=== PATIENT | female | born 1930 | race Caucasian/White ===

== ENCOUNTER 2017-05-05 15:50 | Emergency (ER) | payer MEDICARE, BC ==
[~2017-05-05] VITALS: Ht 149.9 cm; Wt 49.9 kg
[~2017-05-05 15:50] MED LIST: ACETAMINOPHEN650 M3 PO; ASPIR 8181 MG PO; CARAFATE 1 GM TA1 G1 PO; CITRACAL + D31 EACH PO; CLOPIDOGREL75 MG PO; HYDROCHLOROTHIA25 M2 PO; LIPITOR 20 MG T20 M1 PO; LOPRESSOR25 PO; MIRALAX17 GM PO; PRINIVIL20 MG PO; PROTONIX40 M1 PO; RANEXA500 MG PO; SPECTRAVITE SE1 EACH PO; TRAMADOL 50 MG50 MG PO; VITAMIN B-12500 MC5 SL; ZESTORETIC 20-1 EAC3 PO; ZESTORETIC 20-1 EACH PO
[2017-05-05 17:22] VITALS: BP 197/65
== END 2017-05-05 17:23 | disposition home or self-care (01) ==
LOC: M.ERS 15:50
DX: S00.03XA Contusion of scalp, initial encounter (principal); S01.01XA Laceration without foreign body of scalp, initial encounter; I50.9 Heart failure, unspecified; J44.9 Chronic obstructive pulmonary disease, unspecified; Z86.73 Personal history of transient ischemic attack (TIA), and cerebral infarction without residual deficits; Z95.0 Presence of cardiac pacemaker; Z90.710 Acquired absence of both cervix and uterus; Z98.890 Other specified postprocedural states

== ENCOUNTER → 2017-07-24 | Outpatient (CLI) | payer MEDICARE, BC ==
[~2017-07-24] MED LIST changes: +ADVAIR 250-501 EACH INH; +ARICEPT 5 MG TAB5 MG PO; +B12INJ IM; +CEFDINIR300 MG PO; +CLONIDINE HCL0.1 M1 PO; +NORVASC5 MG PO; +TESSALON PERLE100 MG PO; +XALATAN2.5 ML OPHTHALMIC
--- NOTE | 2017-07-24 11:47 | 2DMMODE ---
[place] [address] 2 D/M-MODE ECHOCARDIOGRAM Name: DAVIDJJ M Room: [facility]#: [id number] Admission: 07/24/17 Attend Phys: Landen Covington, Discharge: Date of : [birth year] Date of Service: 07/24/17 1147 Report #: [id number] THIS REPORT FOR: //name// APPROVED REPORT Study performed: 07/24/2017 09:14:47 EXAM: Comprehensive 2D, Doppler, and color-flow Echocardiogram Patient Location: Out-Patient BSA: 1.44 HR: 74 bpm BP: 152/72 mmHg Other Information Study Quality: Good Indications Congestive Heart Failure 2D Dimensions IVSd: 10.38 (7-11mm) LVOT Diam: 19.94 (18-24mm) LVDd: 39.36 mm PWd: 9.54 (7-11mm) Ascending Ao: 29.62 (22-36mm) LVDs: 20.28 (25-40mm) Aortic Root: 27.19 mm Volumes Left Atrial Volume (Systole) LA ESV Index: 14.90 mL/m2 Aortic Valve AoV Peak Rubio.: 1.05 m/s AO Peak Gr.: 4.42 mmHg LVOT Max P.26 mmHg AO Mean Gr.: 2.46 mmHg LVOT Mean P.14 mmHg LVOT Max V: 1.03 m/s AO V2 VTI: 21.71 cm LVOT Mean V: 0.67 m/s PUNEET (VTI): 3.49 cm2 LVOT V1 VTI: 24.25 cm AI Colquitt: 4.55 m/s2 AI PHT: 268.06 ms Mitral Valve MV Decel. Time: 126.29 ms MV PHT: 36.62 ms MVA (PHT): 6.01 cm2 [place] [address] 2 D/M-MODE ECHOCARDIOGRAM Name: JJ HERNANDEZ Room: [facility]#: [id number] Admission: 07/24/17 Attend Phys: Landen Covington, Discharge: Date of : [birth year]02[birth year] Date of Service: 07/24/17 1147 Report #: [id number] TDI Medial E' Rubio.: 0.05 m/s Lateral E' Rubio.: 0.05 m/s Pulmonary Valve PV Peak Rubio.: 0.75 m/s PV Peak Gr.: 2.28 mmHg Tricuspid Valve TR Peak Gr.: 23.66 mmHg RVSP: 28.66 mmHg Left Ventricle The left ventricle is normal size. There is normal LV segmental wall motion. There is normal left ventricular wall thickness. Left ventricular systolic function is normal. The left ventricular ejection fraction is within the normal range. LVEF is 55-60%. The left ventricular diastolic function is normal. Right Ventricle The right ventricle is normal size. The right ventricular systolic function is normal. Atria The left atrium size is normal. Pacemaker lead is present in the right atrium. Aortic Valve The aortic valve is normal in structure. Mild aortic regurgitation. There is no aortic valvular stenosis. Mitral Valve There is mitral annular calcification. Mild mitral regurgitation. No evidence of mitral valve stenosis. Tricuspid Valve The tricuspid valve is normal in structure. Mild tricuspid regurgitation. The RVSP is _35_ mmHg. Pulmonic Valve The pulmonary valve is normal in structure. Mild pulmonic regurgitation. Great Vessels The aortic root is normal in size. IVC is normal in size and collapses with >50% [place] [address] 2 D/M-MODE ECHOCARDIOGRAM Name: HUGOMERVATRODRIGOJJ M Room: [facility]#: [id number] Admission: 07/24/17 Attend Phys: Landen Covington, Discharge: Date of : [birth year] Date of Service: 07/24/17 1147 Report #: [id number] Pericardium There is no pericardial effusion. <Conclusion> LVEF is 55-60%. Mild aortic regurgitation. Mild mitral regurgitation. Mild tricuspid regurgitation. The RVSP is _35_ mmHg. <ELECTRONICALLY SIGNED> By: Zelalem Navarro MD, FACC 07/24/17 1147 1147 1147 Zelalem Navarro MD, FAC /INF
== END ==
LOC: M.CRD 09:00
DX: I08.3 Combined rheumatic disorders of mitral, aortic and tricuspid valves (principal); I50.9 Heart failure, unspecified; I25.10 Atherosclerotic heart disease of native coronary artery without angina pectoris

== ENCOUNTER → 2017-10-29 | Outpatient (CLI) | payer MEDICARE, BC ==
[2017-10-29 08:41] LABS: CHOLESTEROL 201 mg/dL (<200); HDL CHOLESTEROL 58 mg/dL (>40); LDL CHOLESTEROL 106 mg/dL (<100); TC:HDL 3.5 Ratio (Not establshd); TRIGLYCERIDE 187 mg/dL (<150); VLDL 37 mg/dL (<40)
[2017-10-29 08:42] LABS: SERUM ASSESSMENT Clear
== END ==
LOC: M.LAB 08:10
PROVIDERS: Internal Medicine Cardiovascular Disease
DX: E78.5 Hyperlipidemia, unspecified (principal); I25.10 Atherosclerotic heart disease of native coronary artery without angina pectoris

== ENCOUNTER 2017-11-02 08:40 | Inpatient (IN) | payer MEDICARE, BC ==
[~2017-11-02] VITALS: Ht 152.4 cm; Wt 54.0 kg
[~2017-11-02 08:40] MED LIST changes: -ADVAIR 250-501 EACH INH; -ARICEPT 5 MG TAB5 MG PO; -B12INJ IM; -CEFDINIR300 MG PO; -CLONIDINE HCL0.1 M1 PO; -NORVASC5 MG PO; -TESSALON PERLE100 MG PO; -XALATAN2.5 ML OPHTHALMIC
[2017-11-02 08:41] VITALS: BP 154/65
[2017-11-02 09:26] LABS: APTT 28.1 Seconds (25.0-31.3); INR 1.1; PROTIME 10.5 Seconds (9.20-11.50)
[2017-11-02 09:26] LABS: URINE BILIRUBIN NEGATIVE (Negative); URINE BLOOD TRACE (Negative); URINE CLARITY CLEAR; URINE COLOR YELLOW; URINE GLUCOSE-RANDOM NEGATIVE (Negative); URINE KETONES TRACE (Negative); URINE LEUKOCYTES-REFLEX 1+ (Negative); URINE NITRITE-REFLEX NEGATIVE (Negative); URINE PROTEIN 2+ (Negative); URINE UROBILINOGEN 0.2 E.U./dl (0.2-1.0)
[2017-11-02 09:44] LABS: CASTS None Seen /LPF (None Seen); CRYSTALS None Seen /LPF (None Seen); SQUAMOUS 0-3 Few /LPF (0-3)
[2017-11-02 09:45] LABS: BACTERIA-REFLEX >30 Many /HPF (None Seen)
[2017-11-02 09:46] LABS: URINE RBC 0-2 Rare /HPF (0-2)
[2017-11-02 10:46] LABS: HEMATOCRIT 40.3 % (37.0-47.0); HEMOGLOBIN 13.5 gm/dL (12.0-15.0); MCH 30.1 pg (26.0-34.0); MCHC 33.6 g/dL (28.0-37.0); MCV 89.6 fL (80.0-100.0); MPV 10.1 fl. (7.2-11.1); NUCLEATED RBCS 0 /100WBC; PLATELET COUNT* 191 thou/uL (150-400); RDW-CV 14.8 % (10.5-14.5); WBC 14.7 thou/uL (4.0-11.0)
[2017-11-02 10:51] LABS: CALCIUM 9.5 mg/dL (8.5-10.1); CREATININE 1.8 mg/dL (0.6-1.3); POTASSIUM 4.7 mmol/L (3.5-5.1)
[2017-11-02 11:11] LABS: ALBUMIN 3.5 g/dL (3.4-5.0); CK-MB MASS 5.1 ng/mL (<0.5-3.6); TOTAL BILIRUBIN 1.4 mg/dL (<0.1-1.0); TOTAL PROTEIN 7.4 g/dL (6.4-8.2); TROPONIN-I LEVEL 0.15 ng/mL (<0.06)
[2017-11-02 11:52] LABS: ABSOLUTE LYMPHOCYTES 2.1 thou/uL (0.8-5.3); ABSOLUTE MONOCYTES 0.4 thou/uL (0.0-1.2); ABSOLUTE NEUTROPHILS 12.2 thou/uL (1.6-8.1); PLATELET ESTIMATE ADEQUATE
[2017-11-02 12:49] VITALS: BP 92/37
[2017-11-02 13:00] VITALS: BP 120/57
[2017-11-02] MEDS ORDERED: XALATAN2.5 ML OPHTHALMIC (14:45)
[2017-11-02 15:45] VITALS: BP 173/75
[2017-11-02 19:50] VITALS: BP 164/43
[2017-11-03] VITALS: BP 155/56
[2017-11-03 04:00] VITALS: BP 101/62
[2017-11-03 08:20] VITALS: BP 154/55
[2017-11-03 12:00] VITALS: BP 151/54
--- NOTE | 2017-11-03 14:43 | EKG ---
[place] [address] ELECTROCARDIOGRAM REPORT Name: JJ HERNANDEZ Room: [address] IN .R.#: [id number] Admission: 11/02/17 Attend Phys: Isaiah Fonseca Discharge: Date of : [birth year] Report #: [id number] THIS REPORT FOR: //name// [facility] ED Test Date: 2017-11-02 Test Time: 08:51:29 Pat Name: JJ HERNANDEZ Department: Room: Gender: Business Sales Consultant: Patrick FRASER : 1930 Requested By: Leodan Stephens Order Number: [id number] MD: Landen Covington Measurements Intervals Caspian Rate: 104 P: KS: QRS: -61 QRSD: 136 T: -38 QT: 365 QTc: 481 Interpretive Statements Sinus tachycardia RBBB and LAFB Compared to ECG 02/11/2017 14:42:26 No significant changes noted Electronically Signed On 11-03-2017 14:42:58 CDT by Landen Covington [email or web address] <ELECTRONICALLY SIGNED> By: Landen Covington MD, [facility] 11/03/17 1442 [phone] Landen Covington MD, [facility] /EPI
[2017-11-03 16:00] VITALS: BP 119/59
[2017-11-03 18:06] LABS: ABSOLUTE BASOPHILS 0.1 thou/uL (0.0-0.2); ABSOLUTE EOSINOPHILS 0.4 thou/uL (0.0-0.7); ABSOLUTE MONOCYTES 0.8 thou/uL (0.0-1.2); ABSOLUTE NEUTROPHILS 7.3 thou/uL (1.6-8.1); BASOPHILS 0.8 %; EOSINOPHILS 3.4 %; HEMATOCRIT 34.9 % (37.0-47.0); HEMOGLOBIN 11.8 gm/dL (12.0-15.0); LYMPHOCYTES 19.2 %; MCH 30.8 pg (26.0-34.0); MCHC 33.9 g/dL (28.0-37.0); MCV 90.9 fL (80.0-100.0); MONOCYTES 7.3 %; MPV 9.7 fl. (7.2-11.1); NUCLEATED RBCS 0 /100WBC; PLATELET COUNT* 166 thou/uL (150-400); POLYS 69.3 %; RBC 3.84 mil/uL (4.20-5.00); RDW-CV 15.4 % (10.5-14.5); WBC 10.6 thou/uL (4.0-11.0)
[2017-11-03 18:14] LABS: CALCIUM 8.4 mg/dL (8.5-10.1); CREATININE 1.4 mg/dL (0.6-1.3)
[2017-11-03 19:50] VITALS: BP 177/50
[2017-11-04] VITALS (7 sets, daily range): BP systolic 139–221; BP diastolic 53–74
[2017-11-05] VITALS: BP 178/65
[2017-11-05 04:00] VITALS: BP 198/65
[2017-11-05 05:27] LABS: HEMATOCRIT 33.1 % (37.0-47.0); HEMOGLOBIN 11.2 gm/dL (12.0-15.0); MCHC 33.8 g/dL (28.0-37.0); MCV 91.7 fL (80.0-100.0); MPV 9.5 fl. (7.2-11.1); RBC 3.62 mil/uL (4.20-5.00); RDW-CV 15.1 % (10.5-14.5); WBC 10.9 thou/uL (4.0-11.0)
[2017-11-05 05:42] LABS: ALBUMIN 2.5 g/dL (3.4-5.0); CALCIUM 8.7 mg/dL (8.5-10.1); CREATININE 1.2 mg/dL (0.6-1.3); POTASSIUM 3.8 mmol/L (3.5-5.1); TOTAL BILIRUBIN 0.5 mg/dL (<0.1-1.0); TOTAL PROTEIN 5.9 g/dL (6.4-8.2)
[2017-11-05 05:44] VITALS: BP 141/42
[2017-11-05 08:10] VITALS: BP 173/58
[2017-11-05 12:36] VITALS: BP 149/49
[2017-11-05] MEDS ORDERED: NORVASC5 MG PO (14:06)
[2017-11-05] MEDS ORDERED: TESSALON PERLE100 MG PO (14:15)
[2017-11-05] MEDS ORDERED: CLONIDINE HCL0.1 M1 PO (14:19)
[2017-11-05] MEDS ORDERED: CEFDINIR300 MG PO (14:21)
[2017-11-05] MEDS ORDERED: ADVAIR 250-501 EACH INH (14:23)
[2017-11-05 14:28] VITALS: BP 149/49
== END 2017-11-05 15:59 | DRG 871 ==
LOC: M.ERS 08:40 → M.TBA-ER 10:59 → M.2W 10:59
PROVIDERS: Family Medicine; ADMIT Internal Medicine
DX: A41.9 Sepsis, unspecified organism (principal); N17.0 Acute kidney failure with tubular necrosis; G93.41 Metabolic encephalopathy; N39.0 Urinary tract infection, site not specified; E87.1 Hypo-osmolality and hyponatremia; J44.9 Chronic obstructive pulmonary disease, unspecified; K21.9 Gastro-esophageal reflux disease without esophagitis; I50.9 Heart failure, unspecified; Z86.73 Personal history of transient ischemic attack (TIA), and cerebral infarction without residual deficits; Z90.49 Acquired absence of other specified parts of digestive tract; Z90.710 Acquired absence of both cervix and uterus; Z95.0 Presence of cardiac pacemaker; Z79.82 Long term (current) use of aspirin; Z79.899 Other long term (current) drug therapy; Z82.49 Family history of ischemic heart disease and other diseases of the circulatory system

== ENCOUNTER 2017-11-05 13:32 | Inpatient (IN) | payer MEDICARE, BC ==
[~2017-11-05] VITALS: Ht 152.4 cm; Wt 52.2 kg
[~2017-11-05 13:32] MED LIST changes: +XALATAN2.5 ML OPHTHALMIC
[2017-11-05] MEDS ORDERED: NORVASC5 MG PO (14:06)
[2017-11-05 14:15] VITALS: BP 161/65
[2017-11-05] MEDS ORDERED: TESSALON PERLE100 MG PO (14:15)
[2017-11-05] MEDS ORDERED: CLONIDINE HCL0.1 M1 PO (14:19)
[2017-11-05] MEDS ORDERED: CEFDINIR300 MG PO (14:21)
[2017-11-05] MEDS ORDERED: ADVAIR 250-501 EACH INH (14:23)
--- NOTE | 2017-11-05 17:17 | NUR ---
PATIENT ADM TO REHAB FLOOR AT 1625. PATIENT A&OX2, CONFUSED AND FORGETFUL. PATIENT IS HARD OF HEARING, HAS AIDES, BUT LEFT AT HOME. PATIENT HAS FULL SET OF DENTURES, WITH HER IN ROOM. BROUGHT CLOTHES. PATIENT IS IMPULSIVE, GETS UP BY HERSELF. INSTUCTED TO CALL FOR ASSISTANCE; CALL LIGHT AT BEDSIDE WITHIN REACH. BED AND CHAIR ALARM IN PLACE. DENIES ANY PAIN/N/V. ADM ASSESSMENT COMPLETED AND DOCUMENTED. NO SKIN ISSUES; BRUISING ON UPPER EXTREMITIES NOTED. NO OTHER CONCERNS AT THIS TIME. APPROPRIATE AND COOPORATIVE WITH CARE.
[2017-11-05 19:58] VITALS: BP 167/46
[2017-11-06 04:36] LABS: CALCIUM 8.1 mg/dL (8.5-10.1); CREATININE 1.1 mg/dL (0.6-1.3); POTASSIUM 3.7 mmol/L (3.5-5.1)
[2017-11-06 04:44] LABS: MCH 30.9 pg (26.0-34.0); MCV 90.7 fL (80.0-100.0); WBC 8.4 thou/uL (4.0-11.0)
[2017-11-06 04:49] LABS: HEMATOCRIT 29.5 % (37.0-47.0); MPV 9.9 fl. (7.2-11.1); RBC 3.25 mil/uL (4.20-5.00); RDW-CV 15.5 % (10.5-14.5)
--- NOTE | 2017-11-06 05:02 | NUR ---
ASSUMED CARES AT 1920. PT ALERT AND ORIENTED X 2. VERY [place]. GETS EASILY IRRITABLE DUE TO INABILITY TO HEAR WHEN SPOKEN TO. DENIED ANY PAIN. HAS NONPRODUCTIVE COUGH. ADOLFO MCCRAY GIVEN. TAKES PILLS WHOLE WITHOUT ISSUES. SHE IS A MIN ASSIST WITH GAIT BELT AND WALKER. UP TO BATHROOM. HAS STRESS INCONTINENCE. WEARS PULLUPS. NURSING DID ASSIST WITH PERICARES. CALLED OUT WHEN NEEDING TO USE BATHROOM. SLEPT MOST OF THE NIGHT OTHERWISE. CALL LIGHT IN REACH. BED ALARM ON.
[2017-11-06 07:47] VITALS: BP 180/45
--- NOTE | 2017-11-06 08:00 | NUR ---
Pt resting in bed, appears alert o x 1-2 , pt is extremely [place], is difficult to assess. Was able to state she was in hospital, but could not recall events leading to hospitilization. Pt is able to make needs known, denies chest pain, SOB, pain or discomfort. Assisted up to bathroomm. wit gait belt and walker, appears steady, requires hand held assist of one
--- NOTE | 2017-11-06 08:51 | NUR ---
Nutrition: Pt had sepsis, UTI. Was transferred to Rehab unit. Eating 80% of dinner last NOC. Regular diet. +BM. Very [place]. Wt stable at 118#. H/o ARF, UTI, HTN. Albumin 2.5, prealb 14.9, BNP 16990. Pt apppears nutritionally at low risk. GOAL: >75% intake at meals. RD will order cranberry juice for UTI. Will follow weekly.
[2017-11-06 12:06] VITALS: BP 139/45
--- NOTE | 2017-11-06 15:56 | NUR ---
pt progressing towards goals, able to ambulate with walker, with standby assist, appears steady, able to feed self with set up, can dress self with set up. can assist with ADLS (dresing , washing face with set up. o x 1-2 forgetful , cognition improving
[2017-11-06 19:58] VITALS: BP 152/42
--- NOTE | 2017-11-06 23:25 | NUR ---
ASSUMED CARE AT 1930. HAD PUT HERSELF TO BED ON DAY SHIFT. IMPULSIVE. BED AND CHAIR ALARM IN USE. VERY [place]. TAKES MEDS WHOLE ONE AT A TIME WITH WATER WITHOUT DIFF. UP WITH CUING, GAIT BELT, WALKER. VOIDS PER TOILET. WEARS PULLUP. DID USE CALL LITE ONCE THUS FAR TO GO TO TOILET. FALL PRECAUTIONS REITERATED. CALL LITE IN REACH. BED ALARM ON. HOURLY ROUNS. DOOR OPEN FOR BETTER OBSERVATION.
--- NOTE | 2017-11-07 05:52 | NUR ---
SLELPT OFF AND ON THROUGH THE SHIFT. UP TO VOID WITH STEADYING AT TIMES, GAIT BELT, WALKER, VOIDS PER TOILET. DOES OWN HYGIENE AND CLOTHING ADJUSTMENTS. NO C/O PAIN. TURNS SELF EASILY THROUGH NIGHT. BED ALARM ON. HOURLY ROUNDS CONTINUE. CALL LITE IN REACH.
[2017-11-07 08:35] VITALS: BP 135/79
--- NOTE | 2017-11-07 16:03 | NUR ---
SW met with pt to complete initial assessment, introduce self, and SW role. Pt alert and oriented to self and place, pt thought it was 2002 but was redirected to the current year easily. Pt lives at home alone with pt dtr support. Pt has a cane and a walker. SW reviewed team conference summary with pt--plan for pt to remain on rehab and continue therapies at least another week with team to reassess pt length of stay during team conference next Monday 11/13. SW called pt dtr to discuss assessment and review team conference, no answer so SW left a detailed message and encouraged call back with any questions or comments. SW to continue to follow to assist with safe dc planning.
--- NOTE | 2017-11-07 18:01 | NUR ---
PATIENT UP IN CHAIR. PATIENT IS UP WITH STANDBY ASSIST WITH WALKER AND GAIT BELT. PATIENT IS IMPULSIVE AND GETS UP WITHOUT CALLING OUT, BED AND CHAIR ALARMS IN USE. PATIENT USES TOILET APPROPRIATLEY, NO INCONTINENCE. PATIENT HAS GOOD APPETITE. PATIENT DENIES ANY PAIN. PATIENT WORKED WITH THERAPIES TODAY.
[2017-11-07 20:00] VITALS: BP 150/40
--- NOTE | 2017-11-08 05:00 | NUR ---
ASSUMED PT CARE AT 1930. PT ALREADY IN BED AT SHIFT CHANGE. PT VERY [place]. TAKES MEDS WHOLE WITH WATER ONE AT A TIME WITHOUT DIFFICULTY. UP TO BATHROOM FOR LARGE STOOL AT HS. PT IS IMPULISIVE. SET OFF BED ALARM TWICE GETTING UP WITHOUT CALLING. SAID IT WAS TIME TO GET UP BUT RN CONVINCED HER THAT IT WAS ONLY MIDNIGHT. BED ALARM ON FOR SAFETY. UP TO BATHROOM WITH SBA, GAIT BELT AND WALKER. DOES OWN HYGIENE AND CLOTHING ADJUSTMENTS. DENIES PAIN. TURNS HERSELF EASILY THROUGHT THE NIGHT. CALL LIGHT AND FREQUENTLY USED ITEMS WITHIN REACH. HOURLY ROUNDING IN PROGRESS, WILL CONTINUE TO MONITOR.
[2017-11-08 08:00] VITALS: BP 150/44
--- NOTE | 2017-11-08 15:26 | NUR ---
I have reviewed the documentation by RAFIQ CAMARGO from 11/07/17 to 11/08/17 and I concur with it. HUNG DELA CRUZ.
--- NOTE | 2017-11-08 15:38 | NUR ---
ASSUMMED CARE OF PT AT 0730, PT ALERT, CONFUSED, HARD OF HEARING, PT TAKING FOOD AND FLUIDS WELL, SETS OFF BED AND CHAIR ALARMS FREQUENTLY, DENIES PAIN, UP IN CHAIR MUCH OF SHIFT, PARTICIPATED IN ALL THERAPIES, AMBULATES TO TOILET, AND TO DININGROOM, SMALL BM THIS SHIFT, HOURLY ROUNDING COMPLETED, ASSESSMENT COMPLETE, WILL CONTINUE TO MONITOR.
[2017-11-08 20:00] VITALS: BP 129/30
--- NOTE | 2017-11-08 23:24 | NUR ---
ASSUMED CARE AT 1930. PATIENT SLEEPING IN BED. BED ALARM ON. BED ALARM SOUNDED AT 2019 AND PATIENT WAS MOVING ABOUT IN BED. ASKED WHAT THE ALARM WAS FOR. APOLOGIZED FOR NOT USING CALL LITE. UP WITH SBA, GAIT BELT, WALKER, NEEDS CUEING TO POINT TO BATHROOM DESPITE HAVING BEEN IN THE SAME ROOM SINCE 11/05. DOES OWN HYGIENE AND CLOTHING ADJUSTMENTS. WEARS PULLUP. TAKES PILLS ONE AT A TIME WITH WATER. DENIES PAIN. HOURLY ROUNDS CONTINUE. BED ALARM ON. CALL LITE IN REACH.
[2017-11-09 04:05] LABS: MCH 30.4 pg (26.0-34.0); MCHC 33.2 g/dL (28.0-37.0); MCV 91.4 fL (80.0-100.0); MPV 9.1 fl. (7.2-11.1); RBC 3.28 mil/uL (4.20-5.00); RDW-CV 15.4 % (10.5-14.5); WBC 7.7 thou/uL (4.0-11.0)
[2017-11-09 04:24] LABS: ALBUMIN 2.4 g/dL (3.4-5.0); CALCIUM 8.8 mg/dL (8.5-10.1); CREATININE 1.2 mg/dL (0.6-1.3); MAGNESIUM 1.4 mg/dL (1.8-2.4); POTASSIUM 3.9 mmol/L (3.5-5.1); TOTAL BILIRUBIN 0.5 mg/dL (<0.1-1.0); TOTAL PROTEIN 5.5 g/dL (6.4-8.2)
--- NOTE | 2017-11-09 05:35 | NUR ---
SLEPT MOST OF THE NIGHT ON HER SIDE. PATIENT TURNS SELF EASILY. DENIES PAIN. VOIDED PER TOILET. BED ALARM ON. CALL LITE IN REACH. HOURLY ROUNDS CONTINUE.
[2017-11-09 08:00] VITALS: BP 140/42
--- NOTE | 2017-11-09 16:23 | NUR ---
ASSUMMED CARE OF PT AT 0730, PT ALERT, FORGETFUL, TRANSFERS WITH ASSIST OF 1, GB WALKER, NEEDS CUEING, FORGETS WALKER AT TIMES, TAKING FOOD AND FLUIDS WELL, DENIES PAIN, IMPULSIVE AND FORGETS TO USE CALL LIGHT, SETS OFF ALARMS AT TIMES, MG+ LEVEL LOW, REPLACEMENT DONE PER PROTOCAL, HAD SEVERAL SMALL FORMED BM THIS SHIFT, HARSH FREQUENT COUGH THIS SHIFT, LUNGS CLEAR, AMBULATES TO TOILET, AMBULATES TO DININGROOM, PARTICIPATED IN ALL THERAPIES,HOURLY ROUNDING COMPLETED, ASSESSMENT COMPLETE WILL CONTINUE TO MONITOR.
[2017-11-09 20:00] VITALS: BP 122/50
[2017-11-10 04:12] LABS: HEMATOCRIT 28.5 % (37.0-47.0); HEMOGLOBIN 9.6 gm/dL (12.0-15.0); MCH 30.9 pg (26.0-34.0); MCHC 33.7 g/dL (28.0-37.0); MCV 91.5 fL (80.0-100.0); MPV 8.8 fl. (7.2-11.1); RBC 3.11 mil/uL (4.20-5.00); RDW-CV 15.4 % (10.5-14.5); WBC 7.4 thou/uL (4.0-11.0)
[2017-11-10 04:24] LABS: CALCIUM 8.9 mg/dL (8.5-10.1); CREATININE 1.1 mg/dL (0.6-1.3); MAGNESIUM 1.6 mg/dL (1.8-2.4); POTASSIUM 4.4 mmol/L (3.5-5.1)
--- NOTE | 2017-11-10 05:17 | NUR ---
ASSUMED CARES AT 1920. PT ALERT AND ORIENTED X 2. PLEASANT AND FORGETFUL. DENIES ANY PAIN. TAKES PILLS WHOLE WITHOUT ISSUES. COUGH IS IMPROVING. SHE IS A MIN ASSIST WITH GAIT BELT AND WALKER. UP TO BATHROOM. WEARS PULLUPS. DOES OWN CARES. SLEPT MAJORITY OF THE NIGHT. NEEDS REMINDING TO USE CALL LIGHT. BED ALARM ON.
[2017-11-10 08:00] VITALS: BP 164/44
--- NOTE | 2017-11-10 15:44 | NUR ---
ASSUMMED CARE OF PT AT 0730, PT ALERT, FORGETFUL, TRANSFERS WITH SBA ASSIST OF 1, GB WALKER, DENIES PAIN, DENIES NAUSEA, TAKING FOOD AND FLUIDS WELL, IMPULSIVE AND SETS OF ALARMS AT TIMES, PT [place] BUT REFUSES TO WEAR HEARING AIDES, ENCOURAGED PT TO WEAR SEVERAL TIMES BUT PT REFUSED, AMBULATES TO DININGROOM FOR MEALS, VOIDS PER TOILET, WEARS BRIEF, RECTAL AND BUTTOCK AREA RED, BARRIER OINTMENT APPLIED, WITH EACH VOID HAS SMALL FORMED STOOL THIS SHIFT, MG+ LEVEL LOW, REPLACED PER PROTOCOL, HOURLY ROUNDING COMPLETED, ASSESSMENT COMPLETE, WILL CONTINUE TO MONITOR.
[2017-11-10 20:00] VITALS: BP 154/43
--- NOTE | 2017-11-11 05:24 | NUR ---
ASSUMED CARES AT 1920. PT ALERT AND ORIENTED X 2. FORGETFUL. COOPERATIVE. HAS LINGERING NONPRODUCTIVE COUGH. VERY [place]. REFUSES TO WEAR HEARING AIDS. DENIED ANY PAIN, SOA, DIZZINESS. SHE IS A SBA WITH GAIT BELT AND WALKER. UP TO BATHROOM FEW TIMES. DOES OWN CARES. NO URINARY INCONTINENCE BUT DOES WEAR PULLUPS. MAGNESIUM LEVEL 1.6 AND SO WAS REPLACED. REDRAW THIS AM. SLEPT WELL MOST OF THE NIGHT. CALL LIGHT IN REACH AND BED ALARM ON.
[2017-11-11 08:00] VITALS: BP 152/50
--- NOTE | 2017-11-11 09:28 | NUR ---
TRACE called pt dtr Tita at [phone] and Tita did not answer so TRACE left a detailed message requesting call back with any questions or comments. Team conference on Saturday; SW to continue to follow to assist with safe dc planning.
--- NOTE | 2017-11-11 15:24 | NUR ---
AM ASSESSMENT AND VITAL SIGNS COMPLETED DOCUMENTED. PT IS PLEASANT AND COOPERATIVE, VERY HARD OF HEARING. PT HAS BEEN ENCOURAGED TO LEAVE THE HEARING AIDES IN ALL DAY BUT TAKES THEM OUT FREQUENTLY. FALL PRECAUTIONS AND FREQUENT OBSERVATION CONTINUE, PT GETS UP WITHOUT CALLING FOR ASSISTANCE FREQUENTLY. NO ACUTE DISTRESS, WILL CONTINUE TO MONITOR.
[2017-11-11 23:50] VITALS: BP 123/33
--- NOTE | 2017-11-12 05:20 | NUR ---
ASSUMED CARES AT 1920. PT ALERT AND ORIENTED X 2. PLEASANT BUT FORGETFUL AND IMPULSIVE. GETS UP WITHOUT CALLING OR YELLS OUT TO GO BATHROOM. DENIED ANY PAIN. TAKES PILLS WHOLE WITHOUT ISSUES. SBA WITH GAIT BELT AND WALKER. UP TO BATHROOM. HAS HAD FEW BM. SLEPT WELL. CALL LIGHT IN REACH AND BED ALARM ON.
[2017-11-12 07:47] VITALS: BP 124/41
--- NOTE | 2017-11-12 09:54 | NUR ---
AM ASSESSMENT AND VITAL SIGNS COMPLETED DOCUMENTED. PT HAS BEEN TO THE SHOWER WITH OT, ATE BREAKFAST WITHOUT ASSISTANCE AND IS CURRENTLY IN THE THERAPY GYM. FALL PRECAUTIONS AND HOURLY ROUNDING CONTINUE.
--- NOTE | 2017-11-12 18:10 | NUR ---
PT REMAINS STABLE AND WITHOUT COMPLAINTS. BED AND CHAIR ALARMS IN USE, LESS IMPULSIVE TODAY.
[2017-11-12 19:40] VITALS: BP 122/42
--- NOTE | 2017-11-12 20:40 | NUR ---
ASLEEP AT SHIFT CHANGE. AWAKENED FOR HS REASSESSMENT AND VITAL SIGNS. DENIES DISCOMFORT. TOOK MEDS WHOLE WITH WATER. AMBULATES TO THE BATHROOM WITH SBA, GAITBELT, WALKER. VERY HARD OF HEARING. DOESN'T USE THE CALL LIGHT. WHEN NEEDS TO GO TO THE BATHROOM YELLS OUT FOR HELP.
--- NOTE | 2017-11-13 05:10 | NUR ---
UP X 4 DURING THE NIGHT TO THE BATHROOM. HAD A LARGE BM THIS MORNING. NO COMPLAINTS VOICED. HOURLY ROUNDING IN PROGRESS.
[2017-11-13 08:10] VITALS: BP 129/51
--- NOTE | 2017-11-13 15:48 | NUR ---
SW met with pt dtrs to review team conference summary in detail and answer any questions about pt progress in therapy and recommendations for safe dc planning. Plan for pt to dc on Saturday with 24/ supervision possibly to an assisted living facility or a fpc. Pt family discussed pt LTC policy and requesting discovery of whether or not pt has dementia so that the policy could cover LTC facility cost. SW discussed possible need for neuro consult with team and Dr Mcneil. SW and family spoke with pt about plan and pt was agreeable to an assisted living facility situation at [place]. SW provided referral to [facility], pt dtrs plan to make a decision on facility and inform SW who will send referral information/records as needed.
--- NOTE | 2017-11-13 17:12 | NUR ---
PT FORGETS TO CALL FOR SBA TO BATHROOM,CHAIR ALARM IN USE. PT IS PLESANT AND ALERT BUT VERY [place] AND HAS DIFFICULTY UNDERSTANDING REQUESTS. PT IS CONTINENT OF B+B BUT DOES WEAR BREIF AND HAS DRIBBLING AND OCCASIONAL SCANT STOOL IN BREIF. PT C/O BACK PAIN TODAY WITH PL.TYLENOL GIVEN WITH FAIR EFFECT. DANNA FROM [facility] HAS BEEN HERE TO VISIT THIS AFTERNOON. PT TOLERATES MEALS AND EATS IN DINNINGROOM. PT PROGRESSES TOWARDS GOALS AND HOURLY ROUNDING CONTINUES.
[2017-11-13 19:45] VITALS: BP 131/37
[2017-11-13 20:55] VITALS: BP 190/47
--- NOTE | 2017-11-14 01:20 | NUR ---
ASSUMED CARE @ 1944-11/13-SAT.AWAKE IN BED W/ BED ALARM ALREADY ON @ 1944. HEARING AIDS OFF @ THIS TIME.EDEMA-+1 PITTING FEET & ANKLES.CRAMPS BOTH ANKLES & LEGS @ 2049 X 5 MINUTES.RN DORSIFLEXED BOTH TOES DURING CRAMPING. PRN TESSALON PERLE 2 CAPS ORAL GIVEN @ 2108-FOR OCCASIONAL,DRY COUGHS.WEARS PULL UPS.MOISTURE BARRIER CREAM APPLIED TO PINK BUTTOCKS @ 2099.SBA FOR ALL TRANSFERS & TOILETING.SNORING ALREADY @ 2299.ON HOURLY ROUNDS.
[2017-11-14 03:45] VITALS: BP 152/35
--- NOTE | 2017-11-14 05:46 | NUR ---
SLEEPING SINCE 2299.BRP W/ SBA X4 W/ BM'S X 4.REFUSED HS SNACK.BP @ 1944-131/37.BP RE-CHECKED @ 2054-/-AFTER EPISODE OF LEGS CRAMPS. BP @ 5-152/35.
[2017-11-14 19:35] VITALS: BP 134/43
--- NOTE | 2017-11-14 19:50 | NUR ---
SITTING UP IN RECLINER WATCHING TV. AMBULATED TO THE BATHROOM WITH SBA, GAITBELT, WALKER. DOES OWN HYGIENE AND CLOTHING ADJUSTMENTS. DENIES DISCOMFORT. TOOK MEDS WHOLE WITH WATER.
--- NOTE | 2017-11-15 05:18 | NUR ---
UP X 3 TO THE BATHROOM. HAD A BM THE FIRST TIME. YELLED OUT TWO OF THE TIMES FOR ASSIST TO THE BATHROOM. REMINDED ON HOW TO USE THE CALL LIGHT. USED CALL LIGHT THE 2ND TIME AND WENT BACK TO YELLING FOR ASSIST THE THE THIRD TIME. HOURLY ROUNDING IN PROGRESS.
[2017-11-15 08:15] VITALS: BP 100/41
--- NOTE | 2017-11-15 11:55 | NUR ---
TRACE discussed with pt dtr Tita the dc planning for Saturday. Team not recommending pt dc home alone. Pt family preference is for pt to dc to SNF: [facility], [facility], or [facility]. Pt family reviewing ALFs for future and as a back up option if pt does not qualify or accepted to SNF. [facility] has accepted pt; and pt dtrs expressed they still would rather pt have more time at SNF. TRACE faxed referrals to pt/family 3 options and will continue to follow to assist with finalizing safe dc plan for Saturday. SNF if accepted, if not, [facility] with HH, pt dtrs aware but still want to have more time to arrange [facility] if SNF could be an option.
--- NOTE | 2017-11-15 15:30 | NUR ---
I have reviewed the documentation by RAFIQ CAMARGO from 11/11/17 to 11/15/17 and I concur with it. CAT MCCARTHY
[2017-11-15 20:35] VITALS: BP 174/45
[2017-11-15 23:45] VITALS: BP 149/42
--- NOTE | 2017-11-16 01:06 | NUR ---
ASSUMED CARE @ 1934-11/15-SAT.SLEEPING IN BED ON HER LEFT SIDE W/ HOB UP.HOLLIE. HEARING AIDS OFF ALREADY @ 1933.BED ALARM PUT ON @ 1934.EDEMA-+2 PITTING FEET & ANKLES.AWAKENED @ 2034 FOR VS & FOR HS MEDS.SBA FOR ALL TRANSFERS & TOILETING.WEARS PULL UPS.MOISTURE BARRIER CREAM APPLIED TO DRY,PINK,PEELING AREAS BUTTOCKS @ 2109.TURNS SELF @ NIGHT.BUT STAYS ON HER LEFT SIDE ALL NIGHT.FAVORS LEFT SIDE.DRY,NON PRODUCTIVE COUGHING @ 2335.PRN TESSALON PERLE 2 CAPS ORAL GIVEN @ 2335.ON HOURLY ROUNDS.
--- NOTE | 2017-11-16 05:55 | NUR ---
SLEEPING SINCE 1944.SNORING SINCE 2199.BRP W/ SBA X3.BP @ 5-/45 BEFORE BP MEDS GIVEN.BP RE-CHECKED @ 2345-149/42.
[2017-11-16 08:35] VITALS: BP 164/40
--- NOTE | 2017-11-16 14:38 | NUR ---
TRACE called and spoke with pt dtr Leslie and she informed TRACE that the family has decided upon LONG TERM at [facility] for pt dc on Saturday. [facility] has own Nursing and pt dtr said for no additional HH services to be arranged. SW to continue to follow to assist with safe dc planning.
--- NOTE | 2017-11-16 16:31 | NUR ---
pt has called today for assist to bathroom and ambulates with cane,gaitbelt and sba and cane. pt alert and orientated but very [place] with bilat hearing aids and forgetfull. pt wears breifs but is continent of bladder.prn for back ache given this am with good effect.pt tolerates meals and eats in dinningroom and enjoys socializing. pt progresses towards goals and hourly rounding continues.
[2017-11-16 19:40] VITALS: BP 155/42
--- NOTE | 2017-11-17 00:53 | NUR ---
ASSUMED CARE @ 1919-11/16-SAT.SBA BY DAY RN TO BATHROOM @ THIS TIME.SBA FOR ALL TRANSFERS & TOILETING.USES STRAIGHT CANE.HAD MOD.BM.WEARS PULL UPS.USING CALL LIGHT SINCE LAST NIGHT-11/15-SATURDAY.HOB UP & FEET UP DUE TO EDEMA-+2 PITTING FEET & ANKLES.WATCHING TV WHILE IN BED.HOLLIE.HEARING AIDS OFF @ NIGHT.BED ALARM PUT ON @ 1929.ON HOURLY ROUNDS.
--- NOTE | 2017-11-17 05:54 | NUR ---
REFUSED HS SNACK.SLEEPING SINCE 2099.BRP W/ SBA X3.
[2017-11-17 08:00] VITALS: BP 144/47
--- NOTE | 2017-11-17 16:52 | NUR ---
ASSUMMED CARE OF PT AT 0730, PT ALERT, CONFUSED, FORGETFUL, TRANSFERS WITH SBA, GB AND CANE, PT DENIES PAIN, TAKING FOOD AND FLUIDS WELL, TO DININGROOM FOR MEALS, UP IN CHAIR ALL SHIFT, HAD SEVERAL VISITORS THIS SHIFT, ALARMS FOR SAFETY, VOIDS PER TOILET, GROOMING DONE SITTING AT SINK, MINIMAL BATH GIVEN PER PT REQUEST, HOURLY ROUNDING COMPLETED, ASSESSMENT COMPLETE, WILL CONTINUE TO MONITOR.
[2017-11-17 16:58] VITALS: BP 144/47
[2017-11-17 19:45] VITALS: BP 137/31
[2017-11-17] MEDS ORDERED: ARICEPT 5 MG TAB5 MG PO (23:52)
[2017-11-18 00:14] VITALS: BP 144/47
--- NOTE | 2017-11-18 01:27 | NUR ---
ASSUMED CARE @ 1914-11/17-SATURDAY.AWAKE IN BED WATCHING TV.HOB UP.HEARING AIDS OFF @ NIGHT.BED ALARM PUT ON @ 1914.FOOT OF BED UP DUE TO EDEMA-+1 PITTING- HOLLIE.FEET & HOLLIE.ANKLES.SBA FOR ALL TRANSFERS & TOILETING.WEARS PULL UPS. MOISTURE BARRIER CREAM APPLIED TO PINK,PEELING SKIN BUTTOCKS @ 2249.DRY COUGH NOTED @ 2254.PRN SYD SEOE 2 CAPS ORAL GIVEN @ 2254.ON HOURLY ROUNDS. STAYS ON HER LEFT SIDE ALL NIGHT.FAVORS LYING ON HER LEFT SIDE.
[2017-11-18 04:25] VITALS: BP 143/33
--- NOTE | 2017-11-18 05:25 | NUR ---
REFUSED HS SNACK.SLEEPING SINCE 2029.SLEPT ON HER LEFT SIDE @ ALL TIMES DURING NIGHT.FAVORS LYING ON HER LEFT SIDE.BRP W/ SBA X3.USED CALL LIGHT X1 ONLY.AT 2250-BED ALARM SOUNDED-PATIENT ALREADY WALKING HALF PART OF ROOM W/OUT STRAIGHT CANE & WANTS TO GO TO BATHROOM.C/O SORE THROAT @ 0400.WARM SALINE GARGLE DONE X3 @ 0420 & GOT RELIEVED.FOR DISCHARGE TODAY-11/18-SATURDAY TO ASSISTED LIVING FACILITY.
[2017-11-18 09:00] VITALS: BP 123/31
[2017-11-18 09:45] VITALS: BP 132/36
--- NOTE | 2017-11-18 09:53 | NUR ---
Pt to dc home to [facility] today with HH services to follow ([facility] has nursing and [facility] PT, OT, ST). [facility]ACE faxed orders, med list, info to [facility] Attn: Arnie. TRACE called to confirm fax number; the phone number to [facility] is [phone]. Pt dtr to provide pt ride home. Pt has walker. No other needs expressed.
[2017-11-18 10:44] VITALS: BP 132/36
[2017-11-18] MEDS ORDERED: B12INJ IM (11:19)
--- NOTE | 2017-11-18 15:53 | NUR ---
PT READY FOR DISCHARGE TO SKILLED,TO CAR PER W/C WITH ALL BELONGINGS. DAUGHTER TO TRANSPORT. PT TRANSFERRED TO CAR WITH OUT PROBLEM WITH USE OF CANE AND SBA. PT REMAINS ALERT AND ORIENTATED. DISCHARGE DISCUSSED WITH DAUGHTER AND PT.
--- NOTE | 2017-11-19 10:17 | NUR ---
I have reviewed the documentation by RAFIQ CAMARGO from 11/18/17 to 11/19/17 and I concur with it. CAT MCCARTHY
--- NOTE | 2017-11-27 11:22 | PLAN ---
[address] [address] REHAB UNIT PLAN OF CARE Name: JJ HERNANDEZ Room: [address] IN ..#: [id number] Admission: 11/05/17 Attend Phys: Tracey Agee DO Discharge: 11/18/17 Date of : [birth year] Report #: [id number] THIS REPORT FOR: //name// CC: Tracey Agee Tessie Osei This is a female admitted to inpatient rehabilitation to facilitate safe discharge home, status post acute hospitalization for encephalopathy as well as significant debility, alterations in activities of daily living and mobility. MEDICAL PROGNOSIS: Good. REHABILITATION PROGNOSIS: Good. Estimated length of stay is 14-16 days with discharge disposition to the home setting where she has supportive family and accessible home. Previous level of function was modified independent with some minimum assistance with activities of daily living. Current level of function is minimum to moderate assistance of 1-2 depending on therapy, activity and time of day. Physical therapy done, is not stated previously. Estimated length of stay is 14-16 days. Physical therapy is 60-90 minutes per day, 5 days per week, working on upper and lower body strength, balance, coordination, navigation. Occupational therapy will work with the patient 60-90 minutes per day, 5 days per week, working on upper and lower body strength, balance, coordination, navigation, bathing, dressing, and toileting. Speech and language pathology will work with the patient on her cognition, memory, expression and strategies to improve, 30-90 minutes per day, 5 days per week. This is an overall plan of care, may change from time to time, we will team her weekly and make changes to plan of care as needed. <ELECTRONICALLY SIGNED> By: Tracey Agee DO 11/27/17 1122 [id number] Agee DO /nt
--- NOTE | 2017-11-27 11:22 | H ---
[address] [address] HISTORY AND PHYSICAL Name: JJ HERNANDEZ Room: [address] IN ..#: [id number] Admission: 11/05/17 Attend Phys: Tracey Agee DO Discharge: 11/18/17 Date of : [birth year] Report #: [id number] THIS REPORT FOR: //name// CC: Tracey Osei HISTORY OF PRESENT ILLNESS: This is a female admitted to inpatient rehabilitation after an acute hospital admission for encephalopathy and increased debility. No changes since the preadmission screening. Previous level of function was modified independent to minimum assistance with activities of daily living depending on her situation and the time of day. Current level of function is minimum to moderate assistance of 1-2 depending on therapy, activity and time of day. Estimated length of stay is 16-18 days and discharge disposition is to home with supportive family with an accessible house. No changes again since the preadmission screening. PAST MEDICAL HISTORY: Unchanged since consultation. PAST SURGICAL HISTORY: Unchanged since consultation. MEDICATIONS: Have been reviewed, reconciled by myself, and are available in the MAR. ALLERGIES: Unchanged since consultation. SOCIAL HISTORY: Unchanged since consultation. FAMILY HISTORY: Unchanged since consultation. REVIEW OF SYSTEMS: A 14-point review of systems is done and is negative except as mentioned in the HPI, specifically no fever, chest pain, shortness of breath, abdominal pain or distention, change in bowel or change in bladder. PHYSICAL EXAMINATION: GENERAL: Alert, oriented, no apparent distress. HEAD, EYES, EARS, NOSE AND THROAT: Intact. She is hard of hearing. She does not have her hearing aids present at the time. HEART: Regular. LUNGS: Symmetric expansion. ABDOMEN: Soft. MUSCULOSKELETAL: No clubbing, cyanosis or edema is noted. NEUROLOGIC: Cranial nerves 2-12 are grossly intact. No focal neuro deficits, 5/5 strength in bilateral upper and lower extremities. ASSESSMENT: 1. Debility with alterations in activities of daily living and mobility. 2. [place] [address] HISTORY AND PHYSICAL Name: JJ HERNANDEZ Room: [address] IN ..#: [id number] Admission: 11/05/17 Attend Phys: Tracey Agee DO Discharge: 11/18/17 Date of : [birth year] Report #: [id number] 3. Multiple medical comorbidities requiring daily medical care. PLAN: 1. Admission to the acute inpatient rehabilitation to facilitate safe discharge home. 2. PT, OT, speech, language, , HIMS and case management to make evaluations and recommendations. 3. Standing orders and labs as noted. 4. Plan of care is pending and we will team her weekly and make change to plan of care as needed. <ELECTRONICALLY SIGNED> By: Tracey Agee DO 11/27/17 1122 1530 [id number] Agee DO /lon
--- NOTE | 2017-12-12 12:46 | D ---
[facility] [address] [place] [address] DISCHARGE SUMMARY Name: JJ HERNANDEZ Room: [address] IN M.R.#: [id number] Admission: 11/05/17 Attend Phys: Tracey Agee DO Discharge: 11/18/17 Date of : [birth year] Report #: [id number] THIS REPORT FOR: //name// CC: Tracey Osei DISCHARGE DIAGNOSIS: Encephalopathy. DISCHARGE DISPOSITION: To [facility]. FOLLOWUP: With primary care physician within 1 week, with Neurology in 1-2 weeks. Notifications for physician were given. DIET: Heart healthy. LIMITATIONS: Fall precautions. MEDICATIONS: Reviewed, reconciled and are available in the MAR. Appropriate prescriptions were given for 1 month's time including Tessalon Perles and Aricept. DISCHARGE PHYSICAL EXAMINATION: GENERAL: Alert, oriented, no apparent distress. VITAL SIGNS: Reviewed and are stable. HEENT: Atraumatic, normocephalic. Pupils equal, round, reactive. ABDOMEN: Soft, nontender, nondistended. NEUROLOGIC: Cranial nerves 2-12 are grossly intact with no focal neuro deficits, 5/5 strength in the bilateral upper and lower extremities. SKIN: Warm and dry. No rashes or lesions noted. <ELECTRONICALLY SIGNED> By: Tracey Agee DO 12/12/17 1246 1244 [id number] Agee DO /lon
== END 2017-11-18 16:05 | disposition home health service (06) | DRG 71 ==
LOC: M.REH 13:32
PROVIDERS: Family Medicine; ADMIT Physical Medicine & Rehabilitation
DX: G93.41 Metabolic encephalopathy (principal); N39.0 Urinary tract infection, site not specified; R53.81 Other malaise; E83.42 Hypomagnesemia; J44.9 Chronic obstructive pulmonary disease, unspecified; I50.9 Heart failure, unspecified; I11.0 Hypertensive heart disease with heart failure; J20.9 Acute bronchitis, unspecified; E78.5 Hyperlipidemia, unspecified; Z96.0 Presence of urogenital implants; R41.89 Other symptoms and signs involving cognitive functions and awareness; D64.9 Anemia, unspecified; H91.90 Unspecified hearing loss, unspecified ear; Z60.2 Problems related to living alone; F03.90 Unspecified dementia, unspecified severity, without behavioral disturbance, psychotic disturbance, mood disturbance, and anxiety; I95.2 Hypotension due to drugs; T46.5X5A Adverse effect of other antihypertensive drugs, initial encounter; Y92.230 Patient room in hospital as the place of occurrence of the external cause; Z90.710 Acquired absence of both cervix and uterus; Z90.49 Acquired absence of other specified parts of digestive tract; Z86.73 Personal history of transient ischemic attack (TIA), and cerebral infarction without residual deficits; Z95.0 Presence of cardiac pacemaker; Z79.899 Other long term (current) drug therapy; Z79.82 Long term (current) use of aspirin; Z98.42 Cataract extraction status, left eye; Z98.41 Cataract extraction status, right eye; Z82.49 Family history of ischemic heart disease and other diseases of the circulatory system